=== PATIENT | female | born 1995 | race Caucasian/White ===

== ENCOUNTER 2019-10-30 14:52 | Emergency (ER) | payer OTHER, SELFPAY ==
[2019-10-30 15:18] VITALS: BP 132/78; PULSE 101; RESP 18; TEMP 37.1; O2SAT 98
[2019-10-30 15:27] LABS: Basophils Absolute Auto 0.03 K/mm3 (0.00-0.10); Basophils Percent Auto 0.5 % (0.0-1.0); Eosinophils Absolute Auto 0.04 K/mm3 (0.02-0.50); Eosinophils Percent Auto 0.7 % (1.0-6.0); Hemoglobin 14.8 g/dL (12.0-15.0); Immature Granulocyte Absolute 0.02 K/mm3 (0.00-0.00); Immature Granulocyte Percent A 0.3 % (0.0-0.0); Lymphocytes Absolute Auto 2.32 K/mm3 (1.10-4.50); Lymphocytes Percent Auto 39.5 % (18.0-42.0); Mean Corpuscular HGB Conc 32.9 g/dL (32.0-36.0); Mean Corpuscular Hemoglobin 30.3 pg (27.0-31.0); Mean Platelet Volume 11.3 fl (9.2-11.8); Monocytes Absolute Auto 0.35 K/mm3 (0.10-0.90); Neutrophils Absolute Auto 3.1 K/mm3 (1.7-7.2); Platelet Count Result 219 K/mm3 (150-420); Red Blood Count 4.89 M/mm3 (4.20-5.40); Red Cell Distribution Width 12.2 % (11.6-14.4); White Blood Count 5.9 K/mm3 (4.8-10.8)
[2019-10-30 15:45] LABS: Acetaminophen 0 ug/mL (10-30); Salicylate < 0.3 mg/dL (2.8-20.0)
[2019-10-30 15:52] LABS: Alanine Aminotransferase 15 U/L (14-59); Albumin Level 4.4 g/dL (3.4-5.0); Alkaline Phosphatase 136 U/L (46-116); Anion Gap 8 mmol/L (8-16); Aspartate Amino Transferase 11 U/L (15-37); Bilirubin,Total 0.6 mg/dL (0.00-1.00); Blood Urea Nitrogen 7 mg/dL (7-18); Calcium 9.1 mg/dL (8.5-10.1); Carbon Dioxide 27 mmol/L (21-32); Chloride 105 mmol/L (98-108); Estimated CRCL calculation 87 ml/min; Estimated Glomerular Filt Rate > 60; Glucose 104 mg/dL (70-99); Osmolality Calculated 288 mOsm/kg (285-295); Potassium 3.6 mmol/L (3.5-5.1); Sodium 140 mmol/L (136-145); Thyroid Stimulating Hormone 0.81 uIU/mL (0.36-3.74); Total Protein 7.9 g/dL (6.4-8.2)
[2019-10-30 15:54] LABS: Ethanol < 3 mg/dL (0-6)
--- NOTE | 2019-10-30 15:57 | ED.PSYCH ---
HPI - Psych General Chief Complaint: Psychiatric Symptoms Stated Complaint: mental health eval Source: patient Mode of arrival: ambulatory Limitations: no limitations History of Present Illness HPI Narrative: Carla is a 24F with a PMH of anxiety/depression that presented to the ED from her [employer] office with thoughts of suicide. She has had depressed symptoms for some time. They became worse when she was living in [facility] as the beginning of last month. She became home sick and moved back home. Since coming home her mood has declined. She is more depressed and hopless, has poor sleep, poor appetite, anhedonia, and has started to think she may be better off gone. She denies making plans to take her own life or harm herself or anyone else. She has no other medical concerns. Related Data Home Medications Medication Instructions Recorded Confirmed sertraline 100 mg PO HS 10/30/19 10/30/19 Allergies Allergy/AdvReac Type Severity Reaction Status Date / Time No Known Allergies Allergy Verified 10/30/19 15:25 Review of Systems Constitutional: Constitutional: Reports no additional constitutional complaints Eyes: Eyes: Reports no additional eye complaints ENT: Reports system reviewed and no additional complaints, except as documented Cardiovascular: Cardiovascular: Reports no additional cardiovascular complaints Respiratory: Respiratory: Reports no additional respiratory complaints Gastrointestinal: Gastrointestinal: Reports no additional gastrointestinal complaints Genitourinary: Genitourinary: Reports no additional female genitourinary complaints Musculoskeletal: Musculoskeletal: Reports no additional musculoskeletal complaints Integumentary/Breasts: Skin/Breast: Reports system reviewed and no additional complaints, except as docu Neurologic: Reports system reviewed and no additional complaints, except as documented Psychiatric: Psychiatric: Reports no additional psychiatric complaints Endocrine: Endocrine: Reports no additional endocrine complaints Hematologic/Lymphatic: Hematologic/Lymphatic: Reports no additional hematologic/lymphatic complaints Allergic/Immunologic: Allergic/Immunologic: Reports no additional allergic/immunologic complaints [facility] Social History Social History Gender identity (if verbalized by the patient): Female Exam Const: General: no acute distress and alert Orientation/consciousness: patient oriented x3 Limitations: No altered mental status HENMT: Head: normal to inspection Eyes: Conjunctivae: conjunctivae normal Pupils: Equal, round and reactive pupils present Neck: Neck: normal visual inspection Chest: Chest palpation & inspection: normal inspection of the chest Resp: Effort & Inspection: normal respiratory effort Auscultation: clear to auscultation bilaterally Cardio: Rate: regular rate Rhythm: regular rhythm Heart sounds: no murmurs GI: GI Palp: Yes Soft to palpation, Yes Tenderness to palpation present (GI) and No Guarding due to palpation present (GI) Skin: General skin exam: normal color Rashes: no rashes Neuro: General: patient oriented x3 and moves all extremities Extrem: General: normal to inspection Psych: Mental Status: mental status grossly normal Course Course Emergency Course: Carla was evaluated and labs were ordered as below. [facility] was contacted and is sending a sales representative church [employer] out. Labs were largely unremarkable. Lila performed the evaluation and thought she was safe to go home and that she was not a threat to herself or others. They arranged follow up for tomorrow and she was discharged to follow up with them and her PCP. Vital Signs Vital signs: Vital Signs Temperature 98.7 F 10/30/19 15:18 Pulse Rate 101 H 10/30/19 15:18 Respiratory Rate 18 10/30/19 15:18 Blood Pressure 132/78 10/30/19 15:18 Pulse Oximetry 98 10/30/19 15:18 Temperature 9
--- NOTE | 2019-10-30 16:42 | PC.NURSE ---
1535 [facility] resource [place] call for eval 1640 [place] [place] arrived to speak with pt
[2019-10-30 17:28] VITALS: BP 94/71; PULSE 90; RESP 20; O2SAT 99
== END 2019-10-30 17:33 | disposition home or self-care (01) ==
PROVIDERS: Emergency Provider Family Medicine; PCP Family Medicine
DX: F32.9 Major depressive disorder, single episode, unspecified (principal); Z79.899 Other long term (current) drug therapy
CPT/HCPCS: 36415; 80053; 80307; 84443; 85025; 99282; 99283; 99284

== ENCOUNTER 2020-05-11 19:44 | Emergency (ER) | payer OTHER, SELFPAY ==
--- NOTE | ~2020-05-11 | XR_ITS ---
EXAMINATION: XR hand LT min 3V DATE: 05/11/2020 20:25 INDICATION: Left hand pain. Injury. TECHNIQUE: 3 views of left hand were obtained. COMPARISON: None. FINDINGS: Bone alignment is normal. No fracture. There is a benign bone island in third distal phalan x. Joint spaces are well maintained. IMPRESSION: 1. Normal left hand. Reviewed, dictated and finalized at location A. IMPRESSION: 1. Normal left hand.
--- NOTE | 2020-05-11 19:59 | ED.UPPEXIN ---
HPI - Extremity Injury (Upper) General Chief Complaint: Extremity Injury, Upper Stated Complaint: hand injury Time Seen by Provider: 05/11/20 19:59 Source: patient Mode of arrival: ambulatory Limitations: no limitations History of Present Illness HPI narrative: 24-year-old woman comes in today complaining of ulnar left hand pain that started a short time ago when she was injured during a fire drill. A power tool got caught and her hand was pinched in a door. She has mild swelling and denies any numbness. Is no abrasions or lacerations. complaint: injury to: left and hand Onset (ago): hour(s) (1) Other Extremity Injury: Left: fingers and hand Other injuries: none Handedness: right Place: work Relieving factors: rest Exacerbating factors: movement of extremity ( And palpation) Context: crush Associated symptoms: denies other symptoms Treatments prior to arrival: cold therapy Related Data Home Medications Medication Instructions Recorded Confirmed sertraline 100 mg PO HS 10/30/19 10/30/19 Allergies Allergy/AdvReac Type Severity Reaction Status Date / Time No Known Allergies Allergy Verified 10/30/19 15:25 Review of Systems Review of Systems: All systems reviewed & are unremarkable except as noted in HPI and below Musculoskeletal: Musculoskeletal: Denies arthralgias and Denies joint swelling Integumentary/Breasts: Skin/Breast: Denies pruritus, Denies erythema and Denies rash Neurologic: Denies vertigo, Denies syncope and Denies numbness Hematologic/Lymphatic: Hematologic/Lymphatic: Denies easy bleeding and Denies easy bruising [facility] Social History Social History (Updated 05/11/20 @ 21:02 by Smith Gutierrez MD) Smoking status: Never smoker Alcohol intake: current Alcohol use details: rarely Substance use: never Living arrangements: with family Gender identity (if verbalized by the patient): Female Exam Const: General: healthy appearing and alert Orientation/consciousness: patient oriented x3 Other: mild acute distress. Eyes: Conjunctivae: conjunctivae normal Pupils: Equal, round and reactive pupils present EOM: EOMs intact bilaterally Resp: Effort & Inspection: normal respiratory effort and not labored Auscultation: clear to auscultation bilaterally, no rales, no rhonchi and no wheezes Cardio: Rate: regular rate Rhythm: regular rhythm Heart sounds: no murmurs Skin: General skin exam: normal color, no jaundice and no pallor Rashes: no rashes Neuro: General: patient oriented x3, moves all extremities and no focal motor deficits Speech: normal speech Gait exam (Neuro): Normal gait present Extrem: General: normal to inspection and no clubbing, cyanosis or edema Other: Tenderness over the 5th metacarpal of left hand and also over the proximal 5th finger. There is minimal swelling, very little ecchymoses, and no abnormal contour. There is tenderness with rotation of the 5th digit on the left. Psych: Appearance: grossly normal and well kempt Mental Status: mental status grossly normal Affect: normal affect Attitude: cooperative Thought content: Yes Normal thought content present Discharge Plan Discharge Clinical Impression: Contusion of hand Qualifiers: Encounter type: initial encounter Laterality: left Qualified Code(s): S60.222A - Contusion of left hand, initial encounter Patient Disposition: Home, Self-Care Condition: Stable Instructions: Contusion in Adults (ED) Additional Instructions: Rest, ice, elevation and ibuprofen. If your symptoms are not improving over the next 2-3 days, follow-up with her doctor. Prescriptions: No Action sertraline 100 mg tablet 100 mg PO HS RF: 0 Follow-up/Referrals: UNKNOWN,DOCTOR [Primary Care Provider] - Stand Alone Forms: Work/School Release IP Time of Disposition: 21:04
[2020-05-11 20:01] VITALS: BP 138/88; PULSE 100; RESP 18; TEMP 36.6; O2SAT 95
[2020-05-11 21:07] VITALS: BP 111/80; PULSE 72; RESP 16; TEMP 36.6; O2SAT 99
== END 2020-05-11 21:12 | disposition home or self-care (01) ==
PROVIDERS: Emergency Provider Emergency Medicine
DX: S60.222A Contusion of left hand, initial encounter (principal); W22.8XXA Striking against or struck by other objects, initial encounter
CPT/HCPCS: 73130; 99282; 99283

== ENCOUNTER 2020-05-18 | Emergency (ER) | payer SELFPAY ==
[2020-05-18 00:34] VITALS: BP 139/90; PULSE 86; RESP 20; TEMP 37.2; O2SAT 100
[2020-05-18 00:38] LABS: Basophils Absolute Auto 0.04 K/mm3 (0.00-0.10); Basophils Percent Auto 0.5 % (0.0-1.0); Eosinophils Absolute Auto 0.05 K/mm3 (0.02-0.50); Eosinophils Percent Auto 0.6 % (1.0-6.0); Hematocrit 42.7 % (35.0-49.0); Immature Granulocyte Absolute 0.03 K/mm3 (0.00-0.00); Immature Granulocyte Percent A 0.4 % (0.0-0.0); Lymphocytes Absolute Auto 2.46 K/mm3 (1.10-4.50); Lymphocytes Percent Auto 29.7 % (18.0-42.0); Mean Corpuscular HGB Conc 32.8 g/dL (32.0-36.0); Mean Corpuscular Hemoglobin 30.1 pg (27.0-31.0); Mean Corpuscular Volume 91.8 fL (78.0-102.0); Mean Platelet Volume 11.1 fl (9.2-11.8); Monocytes Absolute Auto 0.64 K/mm3 (0.10-0.90); Monocytes Percent Auto 7.7 % (2.0-11.0); Neutrophils Absolute Auto 5.1 K/mm3 (1.7-7.2); Neutrophils Percent Auto 61.1 % (50.0-70.0); Platelet Count Result 231 K/mm3 (150-420); Red Blood Count 4.65 M/mm3 (4.20-5.40); Red Cell Distribution Width 12.5 % (11.6-14.4); White Blood Count 8.3 K/mm3 (4.8-10.8)
[2020-05-18 00:39] LABS: Add Urine Microscopic? YES; Appearance Urine Clear (Clear); Bilirubin Urine Negative (Negative); Blood Urine Negative (Negative); Color Urine Yellow (Yellow); Glucose Urine UA Negative (Negative); Ketones Urine Negative (Negative); Leukocyte Esterase Ur Trace LEU/UL (Negative); Nitrate Urine Negative (Negative); Protein Urine Negative (Negative); Specific Grav Ur 1.025 (1.010-1.020); pH Urine 6.5 (5.0-8.0)
[2020-05-18 00:44] LABS: Bacteria Urine 1+ /hpf; RBC Urine None seen /hpf (0-2); Squamous Epithelial Cell Urine Few /hpf (Few); WBC Urine 0-3 /hpf (0-3)
[2020-05-18 00:45] LABS: Pregnancy On Board Control Positive; Urine Pregnancy Test Negative
[2020-05-18 00:49] LABS: Amphetamine Screen Urine Negative (Negative); Barbiturate Screen Urine Negative (Negative); Benzodiazepines Screen Urine Negative (Negative); Cannabinoid Screen Urine Negative (Negative); Cocaine Screen Urine Negative (Negative); Methadone Screen Urine Negative (Negative); Opiate Screen Urine Negative (Negative); Phencyclidine Screen Urine Negative (Negative)
--- NOTE | 2020-05-18 00:50 | ED.GENADULT ---
HPI - General Adult General Chief complaint: Psychiatric Symptoms Stated complaint: Suicidal Ideations Source: patient and EMS Mode of arrival: ambulatory Limitations: no limitations History of Present Illness HPI narrative: Caral is a 24F with a PMH of mood disorder that was brought to the ED with concerns of SI. She has struggled with her mood for some time but it has been getting worse over the last few days. It got worse on Easter today because a lot of her family is away. She reportedly spoke with a friend and said that she though she may be better off if she was not here. She denies having a plan to hurt herself and says she would never mckay it. The racing thoughts in her head are just a lot to handle. She wants them to stop but does not want to kill herself. She has no other medical concerns. Related Data Home Medications Medication Instructions Recorded Confirmed sertraline 100 mg PO DAILY 05/18/20 05/18/20 Allergies Allergy/AdvReac Type Severity Reaction Status Date / Time No Known Allergies Allergy Verified 05/18/20 01:23 Review of Systems Constitutional: Constitutional: Reports no additional constitutional complaints Eyes: Eyes: Reports no additional eye complaints ENT: Reports system reviewed and no additional complaints, except as documented Cardiovascular: Cardiovascular: Reports no additional cardiovascular complaints Respiratory: Respiratory: Reports no additional respiratory complaints Gastrointestinal: Gastrointestinal: Reports no additional gastrointestinal complaints Genitourinary: Genitourinary: Reports no additional female genitourinary complaints Musculoskeletal: Musculoskeletal: Reports no additional musculoskeletal complaints Integumentary/Breasts: Skin/Breast: Reports system reviewed and no additional complaints, except as docu Neurologic: Reports system reviewed and no additional complaints, except as documented Psychiatric: Psychiatric: Reports as per HPI Endocrine: Endocrine: Reports no additional endocrine complaints Hematologic/Lymphatic: Hematologic/Lymphatic: Reports no additional hematologic/lymphatic complaints Allergic/Immunologic: Allergic/Immunologic: Reports no additional allergic/immunologic complaints Exam Const: General: no acute distress and alert Orientation/consciousness: patient oriented x3 Limitations: No altered mental status HENMT: Head: normal to inspection Eyes: Conjunctivae: conjunctivae normal Pupils: Equal, round and reactive pupils present Neck: Neck: normal visual inspection Chest: Chest palpation & inspection: normal inspection of the chest Resp: Effort & Inspection: normal respiratory effort, not labored, no retractions and not tachypneic Auscultation: clear to auscultation bilaterally Cardio: Rate: regular rate Rhythm: regular rhythm Heart sounds: no murmurs GI: GI Palp: Yes Soft to palpation, No Tenderness to palpation present (GI) and No Guarding due to palpation present (GI) Skin: General skin exam: normal color Rashes: no rashes Neuro: General: patient oriented x3, moves all extremities and no meningeal signs Extrem: General: normal to inspection Psych: Mental Status: mental status grossly normal Affect: normal affect Course Course Emergency Course: Ordered labs. Labs largely unremarkable. Connor from [facility] evaluated and thought she is safe to discharge and follow up with them tomorrow as well as starting wellbutrin tomorrow. Vital Signs Vital signs: Vital Signs Temperature 98.9 F 05/18/20 00:34 Pulse Rate 86 05/18/20 00:34 Respiratory Rate 20 05/18/20 00:34 Blood Pressure 139/90 05/18/20 00:34 Pulse Oximetry 100 05/18/20 00:34 Temperature 98.9 F 05/18/20 00:34 Pulse Rate 86 05/18/20 00:34 Respiratory Rate 20 05/18/20 00:34 Blood Pressure 139/90 05/18/20 00:34 Pulse Oximetry 100 05/18/20 00:34 Medical Decision Making Vital Signs Vital Signs: Vital Signs
[2020-05-18 01:01] LABS: Alanine Aminotransferase 14 U/L (14-59); Albumin Level 3.8 g/dL (3.4-5.0); Alkaline Phosphatase 106 U/L (46-116); Anion Gap 8 mmol/L (8-16); Aspartate Amino Transferase 17 U/L (15-37); Bilirubin,Total 0.5 mg/dL (0.00-1.00); Blood Urea Nitrogen 10 mg/dL (7-18); Calcium 8.9 mg/dL (8.5-10.1); Carbon Dioxide 29 mmol/L (21-32); Chloride 102 mmol/L (98-108); Estimated CRCL calculation 83 ml/min; Estimated Glomerular Filt Rate > 60; Glucose 91 mg/dL (70-99); Osmolality Calculated 287 mOsm/kg (285-295); Potassium 3.5 mmol/L (3.5-5.1); Salicylate 0.9 mg/dL (2.8-20.0); Sodium 139 mmol/L (136-145); Total Protein 7.7 g/dL (6.4-8.2)
[2020-05-18 01:04] LABS: Ethanol < 3 mg/dL (0-6)
[2020-05-18 01:05] LABS: Acetaminophen < 2 ug/mL (10-30)
[2020-05-18 01:22] LABS: Thyroid Stimulating Hormone 1.07 uIU/mL (0.36-3.74)
== END 2020-05-18 02:45 | disposition home or self-care (01) ==
PROVIDERS: Emergency Provider Family Medicine; PCP Family Medicine
DX: F32.9 Major depressive disorder, single episode, unspecified (principal)
CPT/HCPCS: 36415; 80053; 80307; 81001; 81025; 84443; 85025

== ENCOUNTER 2020-08-12 11:12 | Outpatient (CLI) | payer OTHER, SELFPAY ==
[2020-08-12 11:37] LABS: Basophils Absolute Auto 0.02 K/mm3 (0.00-0.10); Basophils Percent Auto 0.4 % (0.0-1.0); Eosinophils Absolute Auto 0.02 K/mm3 (0.02-0.50); Eosinophils Percent Auto 0.4 % (1.0-6.0); Hematocrit 42.6 % (35.0-49.0); Hemoglobin 14.7 g/dL (12.0-15.0); Immature Granulocyte Absolute 0.01 K/mm3 (0.00-0.00); Immature Granulocyte Percent A 0.2 % (0.0-0.0); Immature Reticulocyte Fraction 5.2 % (2.0-16.52); Lymphocytes Absolute Auto 2.05 K/mm3 (1.10-4.50); Lymphocytes Percent Auto 39.6 % (18.0-42.0); Mean Corpuscular HGB Conc 34.5 g/dL (32.0-36.0); Mean Corpuscular Hemoglobin 30.9 pg (27.0-31.0); Mean Corpuscular Volume 89.7 fL (78.0-102.0); Monocytes Absolute Auto 0.39 K/mm3 (0.10-0.90); Monocytes Percent Auto 7.5 % (2.0-11.0); Neutrophils Absolute Auto 2.7 K/mm3 (1.7-7.2); Neutrophils Percent Auto 51.9 % (50.0-70.0); Platelet Count Result 201 K/mm3 (150-420); Red Blood Count 4.75 M/mm3 (4.20-5.40); Red Cell Distribution Width 11.9 % (11.6-14.4); Reticulocyte Hemoglobin Conten 34.9 pg (28.0-35.0); Reticulocyte Percent 1.33 % (0.50-1.50); Reticulocytes Absolute 0.06 M/mm3 (0.02-0.1); White Blood Count 5.2 K/mm3 (4.8-10.8)
[2020-08-12 12:53] LABS: Alanine Aminotransferase 16 U/L (14-59); Albumin Level 4.3 g/dL (3.4-5.0); Alkaline Phosphatase 106 U/L (46-116); Anion Gap 15 mmol/L (8-16); Aspartate Amino Transferase < 10 U/L (15-37); Bilirubin,Total 1.2 mg/dL (0.00-1.00); Blood Urea Nitrogen 9 mg/dL (7-18); Calcium 8.9 mg/dL (8.5-10.1); Carbon Dioxide 24 mmol/L (21-32); Chloride 102 mmol/L (98-108); Estimated Glomerular Filt Rate > 60; Ferritin 60 ng/mL (8-252); Folic Acid 12.3 ng/mL (8.6->20); Glucose 87 mg/dL (70-99); Iron 158 ug/dL (50-170); Osmolality Calculated 289 mOsm/kg (285-295); Percent Iron Saturation 54 % (12-57); Potassium 4.1 mmol/L (3.5-5.1); Sodium 141 mmol/L (136-145); Thyroid Stimulating Hormone 1.01 uIU/mL (0.36-3.74); Total Protein 7.6 g/dL (6.4-8.2); Vitamin B12 173 pg/mL (193-986)
--- NOTE | 2020-08-13 13:27 | WPDHOLTEREM ---
Holter/Event Monitor Holter/Event Monitor Date of procedure: 08/12/20 Holter/Event Procedure: 24 Hr Holter Monitor Indications: Palpitations Conclusion: 1. 24 hour holter monitor on 08/12/20. 2. Underlying rhythm is sinus rhythm. HR range 51-141 bpm; average HR 82 bpm. 3. There are 3 premature supraventricular complexes. No supraventricular tachycardia. 4. There is 1 premature ventricular complex. No ventricular tachycardia. 5. No sinoatrial or atrioventricular blocks. No significant pauses greater than 2 seconds. 6. Patient reports symptoms of shakiness, nausea, shortness of breath and heart racing which demonstrate sinus rhythm, HR range 98-113 bpm.
== END 2020-08-12 11:13 | disposition home or self-care (01) ==
LOC: CHSLAB 11:16
PROVIDERS: PCP Nurse Practitioner Psychiatric/Mental Health; Visit Provider Nurse Practitioner Psychiatric/Mental Health
DX: R63.0 Anorexia (principal); R00.2 Palpitations
CPT/HCPCS: 36415; 80053; 82607; 82728; 82746; 83540; 83550; 84443; 85025; 85046; 93225; 93226; 93227